=== PATIENT | male | born 1995 | race American Indian/Alaskan Native ===

== ENCOUNTER 2020-07-14 20:40 | Emergency (ER) | payer BC, OTHER ==
[~2020-07-14] VITALS: Ht 167.6 cm; Wt 65.8 kg
[~2020-07-14 20:40] MED LIST: ACET325; AMOX875 PO; CODGUAEL PO; CRUTCH3 XX; HYDGUAL120 PO; IBUP200; IBUP600 PO; PRED10 PO; PRED20 PO
[2020-07-14] MEDS ORDERED: Amoxicillin500 MG PO (23:15)
[2020-07-14] MEDS ORDERED: IBUP800 PO (23:15)
== END 2020-07-14 23:30 | disposition home or self-care (01) ==
LOC: ER 20:40
DX: J02.0 Streptococcal pharyngitis (principal)
CPT/HCPCS: 99283; J1100

== ENCOUNTER 2021-09-08 04:39 | Emergency (ER) | payer BC, OTHER ==
[~2021-09-08] VITALS: Ht 167.6 cm; Wt 65.8 kg
[~2021-09-08 04:39] MED LIST changes: +Amoxicillin500 MG PO; +IBUP800 PO
[2021-09-08 06:03] LABS: Influenza A, PCR NEGATIVE (NEGATIVE); Influenza B, PCR NEGATIVE (NEGATIVE); SARS-Cov-2 (COVID-19) PCR, MMC NEGATIVE (NEGATIVE)
[2021-09-08 06:26] LABS: Resp Syncytial Virus, PCR POSITIVE (NEGATIVE)
== END 2021-09-08 07:43 | disposition home or self-care (01) ==
LOC: ER 04:39
PROVIDERS: Emergency Medicine
DX: B34.9 Viral infection, unspecified (principal); Z91.030 Bee allergy status; Z20.822 Contact with and (suspected) exposure to COVID-19
CPT/HCPCS: 0241U; 71045; 99284-25; A9270

== ENCOUNTER → 2021-09-09 | Outpatient (CLI) | payer BC, OTHER | END | disposition home or self-care (01) | LOC: LAB SHORT 10:05 | DX: J02.9 Acute pharyngitis, unspecified (principal) | CPT/HCPCS: 87081 ==